=== PATIENT | female | born 2000 | race Caucasian/White ===

== ENCOUNTER 2019-06-24 01:26 | Emergency (ER) | payer OTHER ==
[~2019-06-24] VITALS: Ht 157.5 cm; Wt 54.4 kg
[2019-06-24 01:40] VITALS: BP_SYST 106
--- NOTE | 2019-06-24 01:48 | NUR ---
Dr. Javier bedside for Pt eval
[2019-06-24] MEDS ORDERED: MORPHINE 4 MG/ML INJ. SYRINGE IM ONE (02:00)
--- NOTE | 2019-06-24 02:07 | NUR ---
Portable X Ray bedside, well tolerated
--- NOTE | 2019-06-24 03:00 | NUR ---
PT resting comfortably in bed, no signs of acute distress. Will cont. to monitor.
--- NOTE | 2019-06-24 03:45 | NUR ---
Stir-up splint applied to L foot. bounding pulse noted. Capillary refill <3 seconds. Patient has ability to move non-splinted digits. Has sensation present to affected site. Skin color within normal limits. Applied for pain management control.
[2019-06-24 04:30] VITALS: BP_SYST 106
--- NOTE | 2019-06-24 04:30 | NUR ---
Patient given written and verbal discharge instructions and verbalizes understanding. ER MD Dr. Javier discussed with patient the results and treatment provided. Patient in stable condition. ID arm band removed. Rx of motrin given. Patient educated on pain management and to follow up with PMD. Pain Scale 0/10. Opportunity for questions provided and answered. Medication side effect fact sheet provided.
== END 2019-06-24 04:30 | disposition home or self-care (01) ==
LOC: SED 01:26
DX: S93.401A Sprain of unspecified ligament of right ankle, initial encounter (principal); W01.0XXA Fall on same level from slipping, tripping and stumbling without subsequent striking against object, initial encounter; Y93.02 Activity, running; Y92.89 Other specified places as the place of occurrence of the external cause; Y99.8 Other external cause status
CPT/HCPCS: 29515; 73590; 73610; 73630; 96372; 99283; J2270